=== PATIENT | male | born 1950 | race Caucasian/White ===

== ENCOUNTER 2016-10-26 09:57 | Inpatient (IN) ==
[2016-10-26] MEDS ORDERED: ZOSYN 3.375 GM/NS 3.375 GM/50 ML IVPB IV ONE (11:00)
[2016-10-26] MEDS ORDERED: NS 1,000 ML IV ONE ×2 (11:01→12:45)
--- NOTE | 2016-10-26 11:25 | PROVIDER DOCUMENTATION ---
This chart was entered by Suha Braga Scribe, acting as scribe for Keyanna Caldera CRNP. HPI-Rash/Wound/ReCheck <Tristen Garcia - Last Filed: 10/29/16 10:26> - General Source: patient - History of Present Illness-Dermatology Location: reports: lower extremity (R lower leg) Quality: reports: painful Severity: reports: mild Onset/Duration: reports: 24 hours ago Timing: reports: still present Context/Associated Symptoms: reports: other (erythema) Exposure: reports: unknown cause Locality of Occurance: Home Similar Symptoms Previously?: Yes Recently seen or treated by another doctor?: Yes - Recheck Treated days ago.: 1 Antibiotics given: prescription Symptoms since procedure:: reports: pain, redness <Keyanna Caldera - Last Filed: 10/29/16 21:04> - General Chief Complaint: Return/Recheck Stated Complaint: RETURN/RECHECK Time Seen by Provider: 10/26/16 10:14 Allergies/Adverse Reactions: Allergies Allergy/AdvReac Type Severity Reaction Status Date / Time cefepime Allergy Severe ITCHING Verified 10/29/16 10:13 Home Medications: Home Medication List Medication Instructions Recorded Confirmed Last Taken Type Clindamycin [Cleocin] 300 mg PO TID #30 capsule 10/25/16 10/26/16 10/26/16 09: 00 Rx Hydrocodone/APAP 5 mg/325 mg 1 - 2 tab PO Q6H PRN PRN #20 tablet 10/25/1610/26/16 03:00 Rx [Halliday-5] Lisinopril/Hydrochlorothiazide 1 each PO DAILY 10/26/16 10/26/16 10/25/16 08:00 History [Lisinopril-Hctz 20-25 mg Tab] - History of Present Illness-Dermatology Nature of Presenting Problem: Pt is 66 y/o M presents to the ED with cellulitis to R lower leg. Pt states was seen yesterday in ED and was diagnosed with cellulitis. Pt states receiving IV fluids and IV antibiotics. Pt states he thinks the redness has worsened. Pt states swollen lymph nodes to R groin. Pt states ant bites to R ankle 3 weeks ago. Pt denies N and V. Pt denies F. (Suha Braga) Pt is 66 y/o M presents to the ED with cellulitis to R lower leg. Pt states was seen yesterday in ED and was diagnosed with cellulitis. Pt states receiving IV fluids and IV antibiotics. Pt states he thinks the redness has worsened. Pt states swollen lymph nodes to R groin. Pt states ant bites to R ankle 3 weeks ago. Pt denies N and V. Pt denies F. (Keyanna Caldera) Review of Systems - Adult - REVIEW OF SYSTEMS - ADULT Constitutional: reports: no symptoms reported Eyes: reports: no symptoms reported Ears, Nose, Mouth & Throat: reports: no symptoms reported Cardiovascular: reports: no symptoms reported Respiratory: reports: no symptoms reported Gastrointestinal: reports: no symptoms reported Genitourinary: reports: no symptoms reported Musculoskeletal: reports: other (R lower leg pain). denies: back pain, neck pain Integumentary: reports: other (erythema R lower leg). denies: hives, itching, rash Neurological: reports: no symptoms reported Psychiatric: reports: no symptoms reported Endocrine: reports: no symptoms reported Hematologic/Lymphatic: reports: no symptoms reported Allergic/Immunologic: reports: no symptoms reported All Other Systems: Reviewed and Negative <Keyanna Caldera - Last Filed: 10/29/16 21:04> Past History - Adult - PAST MEDICAL HISTORY-ADULT Review of Records: reports: Old Records Reviewed, Nursing Assessment Review, Medications Reviewed, Social history reviewed & non-contributory. Major Childhood Illnesses: reports: denies history Cardiovascular: reports: HTN, hyperlipidemia Respiratory: reports: denies history Gastrointestinal: reports: denies history Obstetrical/Gynecological: reports: denies history Genitourinary: reports: denies history Musculoskeletal: reports: denies history Neurological: reports: denies history Endocrine/Immune: reports: denies history Other Conditions: reports: denies history - IMMUNIZATION STATUS Childhood Immunizations: See Nurse Assessment Flu Vaccine: See Nurse Assessment - FAMILY HISTORY Family History: reviewed, not pertinent - SOCIAL HISTORY Smoking: denies Substance Use: denies Living Situation: family <Keyanna Caldera - Last Filed: 10/29/16 21:04> Physical Exam-General - PHYSICAL EXAM-ADULT Initial Vital Signs Reviewed: Yes - CONSTITUTIONAL General Appearance: appears well, alert, no apparent distress - EYES Eyes: PERRL/EOMI - HEAD, EARS, NOSE, MOUTH & THROAT HENMT: moist mucous membranes - RESPIRATORY Respiratory: chest non-tender, lungs clear, normal breath sounds, no pleuratic chest pain, no respiratory distress, no accessory muscle use - CARDIOVASCULAR Cardiovascular: normal peripheral pulses, regular rate, rhythm - GASTROINTESTINAL (ABDOMEN) Abdominal Exam: normal bowel sounds, non tender, soft - LYMPHATIC Lymphatic: inguinal node tender (RT), enlargement - MUSCULOSKELETAL Extremity: normal range of motion, normal gait, erythema (RLE AND RT GROIN), swelling (RLE) Peripheral Pulses: dorsalis-pedis (R): 3+, dorsalis-pedis (L): 3+ - SKIN Integumentary: normal turgor, warm/dry, erythema, swelling, tenderness - NEUROLOGIC Neurologic: grossly normal, no motor/sensory deficits - PSYCHIATRIC Psych/Mental Status: normal mood/affect, oriented x 3 <Keyanna Caldera - Last Filed: 10/29/16 21:04> Progress - PLAN OF CARE/RESULTS Result Diagrams: 10/29/16 08:37 10/29/16 08:37 <Tristen Garcia - Last Filed: 10/29/16 10:26> - PLAN OF CARE/RESULTS Result Diagrams: 10/29/16 08:37 10/29/16 08:37 - REASSESSMENT Reassessment #1 Time Reassessed: 11:00 (DISCUSSED PT WITH DR. GARCIA WHO EVALUATED AND ASSISTED WITH PLAN OF CARE TO ADMIT.) Status: other - CONSULTS/PCP/HOSPITALIST Notification #1 *Consult/PCP/Hospitalist*: DR. GUTIERRES Time Discussed: 12:32 (DISCUSSED ADMISSION FOR CELLULITIS, IV ABX.) Consult Disposition: Admit <Keyanna Caldera - Last Filed: 10/29/16 21:04> - PLAN OF CARE/RESULTS Progress/Plan/Lab Results: Orders Category Date Time Status Admit - [facility] Routine AdmDCTranf 10/26/16 12:45 Ordered Activity - Up Ad Alejandra ORDERED Care 10/26/16 12:45 Completed Call Admitting on Arrival AT ADMISSION Care 10/26/16 12:46 Completed Saline Loc NOW Care 10/26/16 10:59 Completed Vital Signs Order Q 8-HR ASSESS Care 10/26/16 12:45 Active Regular Diet Diet 10/26/16 12:46 Completed CBC WITH ELECTRONIC DIFF [HEME] Stat Lab 10/26/16 11:30 Completed COMPREHENSIVE METABOLIC PANEL [CHEM] Stat Lab 10/26/16 11:30 Completed 0.9% Sodium Chloride Inj [Ns] 1,000 ml Med 10/26/16 12:45 Discontinued IV 150 mls/hr 0.9% Sodium Chloride Inj [Ns] 1,000 ml Med 10/26/16 11:01 Discontinued IV 999 mls/hr Piperacil/Tazobact 3.375 gm/Ns [Zosyn 3.375 gm/Ns] Med 10/26/16 11:00 Discontinued 3.375 gm in 50 ml IV NOW Transfer/Admit Order [TRANSFER] Routine Transfer 10/26/16 12:47 Completed Departure - Departure Date of Disposition Decision: 10/26/16 Time of Disposition Decision: 12:30 Certified Medical Emergency: Urgent - Critical Care Note This patient required my direct & personal management of CC.: No <Tristen Garcia - Last Filed: 10/29/16 10:26> - Departure Date of Disposition Decision: 10/26/16 Time of Disposition Decision: 12:31 Certified Medical Emergency: Emergent - Critical Care Note This patient required my direct & personal management of CC.: No <Keyanna Caldera - Last Filed: 10/29/16 21:04> - Departure DIAGNOSIS: Cellulitis Qualifiers: Site of cellulitis: extremity Site of cellulitis of extremity: lower extremity Laterality: right Qualified Code(s): L03.115 - Cellulitis of right lower limb Disposition: ADMITTED INPATIENT 09 Condition: Good Attestation - Physician/ RENE Attestation Patient care was provided by Advanced Practice Provider:: Yes Advanced Practice Provider:: Keyanna Caldera Advanced Practice Provider documentation review:: The Mid-level provider documentation, treatment plan and medical decision making was reviewed by the physician who agrees with all treatment and medical decision making by the MLP. <Keyanna Caldera - Last Filed: 10/29/16 21:04> This chart was documented by the indicated scribe, (Suha Braga Scribe) and accurately reflects the services I performed and decisions made by , Keyanna Caldera CRNP, as attested by the provider's signature.
[2016-10-26 11:55] LABS: BASO% 0.1 % (0.0-0.8); HEMATOCRIT 36.3 % (42.0-52.0); HEMOGLOBIN 12.1 g/dL (14.0-18.0); IMM GRAN# 0.02 X1000 (0.0-0.04); IMM GRAN% 0.2 % (0.0-0.5); LYMPH% 7.9 % (20.5-51.1); MCH 31.8 PG (27-31); MCHC 33.3 g/dL (33-37); MCV 95.5 FL (81-99); MONO# 0.55 X1000 (0.11-0.59); MONO% 6.2 % (1.7-9.3); MPV 10.2 FL (7.4-10.4); NEUT% 85.6 % (42.2-75.2); PLT 139 X1000 (130-400)
[2016-10-26 12:24] LABS: ALBUMIN 3.4 g/dL (3.5-5.0); CALCIUM 8.5 mg/dL (8.8-10.2); POTASSIUM 3.4 mmol/L (3.5-5.1); TOTAL BILIRUBIN 0.6 mg/dL (0.20-1.00); TOTAL PROTEIN 6.7 g/dL (6.3-8.3)
[2016-10-26 12:26] LABS: MANUAL DIFF NEEDED? NO
[2016-10-26] MEDS ORDERED: ZOFRAN IV PRN (16:49)
[2016-10-26] MEDS ORDERED: PERCOCET-5 PO PRN (16:49)
[2016-10-26 17:20] LABS: HEMOGLOBIN A1C 5.7 % (4.8-6.0)
[2016-10-26] MEDS: NS 1,000 ML IV SCH (17:40)
[2016-10-26] MEDS ORDERED: VANCOMYCIN IV PER PHARMACY MISC SCH (19:15)
[2016-10-26] MEDS: ZOSYN 3.375 GM/NS 3.375 GM/50 ML IVPB IV SCH (19:54)
[2016-10-26] MEDS: VANCOMYCIN 2,000 MG in NS 500 ML IV SCH (20:56)
[2016-10-26] MEDS ORDERED: PERCOCET-10 PO PRN (21:34)
[2016-10-26] MEDS ORDERED: DILAUDID IV PRN (21:34)
[2016-10-27] MEDS: NS 1,000 ML IV SCH ×3 (02:00→21:05)
[2016-10-27] MEDS: ZOSYN 3.375 GM/NS 3.375 GM/50 ML IVPB IV SCH ×4 (02:00→21:02)
[2016-10-27] MEDS ORDERED: TYLENOL PO PRN (02:21)
[2016-10-27] MEDS: PRILOSEC PO SCH (06:29)
[2016-10-27 07:08] LABS: CALCIUM 7.6 mg/dL (8.8-10.2); POTASSIUM 3.4 mmol/L (3.5-5.1)
[2016-10-27 07:17] LABS: HEMOGLOBIN 10.6 g/dL (14.0-18.0); MCH 31.8 PG (27-31); MCHC 33.1 g/dL (33-37); MCV 96.1 FL (81-99); MPV 10.6 FL (7.4-10.4); RBC 3.33 XMIL (4.7-6.1)
[2016-10-27] MEDS ORDERED: DILAUDID IV PRN (08:13)
[2016-10-27] MEDS: PRINIVIL PO SCH (09:10)
[2016-10-27] MEDS: HYDROCHLOROTHIAZIDE PO SCH (09:10)
[2016-10-27] MEDS: LOVENOX SUBQ SCH (09:11)
--- NOTE | 2016-10-27 12:21 | PROGRESS NOTE ---
DATE: 10/27/2016 CHIEF COMPLAINT: Pain right lower extremity. SUBJECTIVE: Patient notes he is still having pain in his right lower extremity. It is quite difficult to understand if the IV Dilaudid or p.o. Percocet actually was affected because patient appears to be uninterested in answering those questions. He certainly does appear to be in pain but it does appear somewhat over exaggerated. Upon entering the room his pain appears to increase. OBJECTIVE: Vital signs: Temperature 99, T-max 100.3 degrees, pulse 80, respiratory rate 16, BP 118/46, saturation 95% on room air. General: Patient is awake, alert, obese male who is currently in no respiratory distress. He is lying in bed flat. HEENT: Normocephalic, atraumatic. CLARENCE. Neck: Supple. CV: Regular rate. Chest: Clear. Abdomen: Soft. Extremities: Moves all extremities, although has pain with movement of the any type of the right lower extremity. Neurologic: No focal changes. Skin: His right lower extremity has deep erythema and increased warmth from 2 fingerbreadths above his right ankle to about 3 cm below his right knee. His right foot actually appears less erythematous and less warm than it did last night, although upon the last night's exam he was sitting up with his feet hanging over the side of the bed, which certainly could have increased the erythema of his foot. ASSESSMENT: 1. Cellulitis. 2. Fever. 3. Hypertension. PLAN: We will consult infectious disease for assistance with antibiotics. We will continue vancomycin and Zosyn for now. We will increase his Dilaudid to 2 mg q.2. Continue Percocet. Continue to follow. cc: Minh Camarena MD
[2016-10-27] MEDS: VANCOMYCIN 2,000 MG in NS 500 ML IV SCH (20:50)
[2016-10-28] MEDS: ZOSYN 3.375 GM/NS 3.375 GM/50 ML IVPB IV SCH ×2 (03:00→06:18)
[2016-10-28 05:51] LABS: HEMOGLOBIN 10.4 g/dL (14.0-18.0); MCH 31.1 PG (27-31); MCHC 32.5 g/dL (33-37); MCV 95.8 FL (81-99); MPV 10.2 FL (7.4-10.4); RBC 3.34 XMIL (4.7-6.1)
[2016-10-28 06:08] LABS: ALBUMIN 2.8 g/dL (3.5-5.0); MAGNESIUM 1.8 mg/dL (1.5-2.7); POTASSIUM 3.3 mmol/L (3.5-5.1); TOTAL BILIRUBIN 0.7 mg/dL (0.20-1.00)
[2016-10-28] MEDS: PRILOSEC PO SCH (06:17)
[2016-10-28] MEDS: MAXIPIME 2 GM/NS 2 GM/100 ML IVPB IV SCH ×2 (08:28→19:48)
[2016-10-28] MEDS: ZYVOX PO SCH ×2 (08:28→19:48)
[2016-10-28] MEDS: HYDROCHLOROTHIAZIDE PO SCH (08:28)
[2016-10-28] MEDS: PRINIVIL PO SCH (08:28)
[2016-10-28] MEDS: LOVENOX SUBQ SCH (08:28)
--- NOTE | 2016-10-28 10:58 | HISTORY AND PHYSICAL ---
CHIEF COMPLAINT: Cellulitis of the right lower extremity. HISTORY OF PRESENT ILLNESS: This is a 66-year-old male who presented to the emergency room initially on 10/25/2016 for evaluation of right lower extremity redness, warmth, and pain. A venous Doppler was performed which revealed no DVT. He was given clindamycin and instructed to follow up with his primary care physician. As there was increasing redness, warmth, and swelling, he opted to return to the emergency room for further evaluation. He was noted to have swelling, redness, and warmth from his ankle up to just above his knee with a right groin enlarged lymph node and redness extending from his groin about 6 inches down his thigh. He is unaware of any injury, scratch, or open areas. Blood cultures were drawn. He was given Zosyn in the emergency room. He is being admitted for further evaluation and treatment. PAST MEDICAL HISTORY: Hypertension, hyperlipidemia, and recurrent infections to his feet as a child. PAST SURGICAL HISTORY: Denies. SOCIAL HISTORY: He denies alcohol, tobacco, or illicit drug use. ALLERGIES: No known drug allergies. HOME MEDICATIONS: Lisinopril/hydrochlorothiazide 20/25 one daily. REVIEW OF SYSTEMS: A 14 point review of systems is discussed with patient with pertinent positives stated in the HPI. He denied chest pain, palpitations, dizziness, syncope, any shortness of breath, PND, orthopnea, nausea, vomiting, diarrhea, constipation, black or bloody vomitus, black or bloody stools, any hematuria, dysuria, frequency, urgency. PHYSICAL EXAMINATION: GENERAL: This is a 66-year-old male who is sitting up in the bed, in no distress. VITAL SIGNS: Blood pressure is 132/70, with a heart rate of 83, respirations are 18, temperature is 98.3 degrees oral, with room air saturations of 98%. HEENT: Head is normocephalic, atraumatic. Pupils equal, round, react to light. EOMs are intact. Sclerae are anicteric. Mucous membranes are moist. NECK: Supple with trachea midline. CARDIOVASCULAR: Regular rate and rhythm. S1 and S2 are appreciated. PULMONARY: Breath sounds are clear with no increased work of breathing noted. GASTROINTESTINAL: Abdomen is soft, nontender, nondistended. Bowel sounds in all 4 quadrants. BACK: No CVAT. No spine tenderness. MUSCULOSKELETAL: Good range of motion of the joints. NEUROLOGIC: He is alert and oriented x3. Cranial nerves 2-12 grossly intact. EXTREMITIES: No clubbing, cyanosis, or edema to upper extremities or left lower extremity. Right lower extremity has redness, edema, and warmth from just above the knee down to the ankle. He does have good peripheral pulses x4. DIAGNOSTICS: WBC is 8.8, with hemoglobin 12.1, hematocrit 36.3, and platelets of 139,000. Sodium 134, potassium 3.4, BUN 22, creatinine 1.7, with a glucose of 130. ASSESSMENT AND PLAN: 1. Cellulitis, right lower extremity. 2. Fever. 3. Hypertension. 4. Acute kidney injury. PLAN: Patient has been admitted to the medical-surgical floor with IV fluids. We will continue Zosyn. We will start vancomycin to be dosed per pharmacy. We will continue his home medications, giving Dilaudid for pain control. The patient denies a known prior history of renal disease. We will hold any renal toxic medications and hydrate and trend labs. We will have pharmacy dose antibiotics. We will consult Dr. Ac Young, infectious disease. Further treatments pending hospital course. Dictated by FILIBERTO Allen for Minh Camarena MD cc: FILIBERTO Allen MD
--- NOTE | 2016-10-28 14:25 | PROGRESS NOTE ---
DATE: 10/28/2016 SUBJECTIVE: The patient is still having some pain in his right lower extremity, although he has required no pain medications since 6 o'clock last night. The patient is watching TV at the time of my exam, and he does not seem interested in answering questions or engaging in conversation. OBJECTIVE: Vital Signs: Blood pressure is 135/46 with a heart rate of 78, respirations are 20, temperature is 98.3 degrees oral with room air saturations of 93% to 99%. Cardiovascular: Regular rate and rhythm. S1, S2 appreciated. Pulmonary: Breath sounds are clear with no increased work of breathing noted. Gastrointestinal: Abdomen is soft, nontender, nondistended with bowel sounds in all 4 quadrants. Extremities: No clubbing, cyanosis, and edema to upper extremities or left lower. Right lower extremity still has erythema and increased warmth from 2 fingerbreadths above his right ankle to about 3 cm below his right knee, although this has decreased somewhat. The edema to his foot is less. Patient has been instructed that the gatch has been elevated on the foot of his bed, and he needs to use this to keep his feet elevated to help with edema, although he is actually sitting with his foot hanging over the side of the bed when staff enter the room. LABS: WBC is 5.4 with a hemoglobin of 10.4, hematocrit 32 and platelets of 139. Sodium is 138, potassium 3.3, BUN 10, creatinine 1.5 with a glucose of 117. ASSESSMENT: 1. Cellulitis, right lower extremity. 2. Fever. 3. Hypertension. 4. Deep vein thrombosis prophylaxis, gastrointestinal prophylaxis. PLAN: We will continue with antibiotics per Dr. Young' recommendations; these were changed this mornin. Zyvox 600 mg q. 12 hours. 2. Cefepime 2 g IV q. 12 hours with day 1 being 10/28/2016. Continue pain control with oxycodone. Dictated by FILIBERTO Allen for Minh Camarena MD cc: FILIBERTO Allen MD
[2016-10-29] MEDS: PRILOSEC PO SCH (05:59)
[2016-10-29] MEDS ORDERED: KLOR-CON PO ONE (07:45)
[2016-10-29] MEDS: PRINIVIL PO SCH (08:29)
[2016-10-29] MEDS: ZYVOX PO SCH ×2 (08:29→20:58)
[2016-10-29] MEDS: HYDROCHLOROTHIAZIDE PO SCH (08:30)
[2016-10-29] MEDS: MAXIPIME 2 GM/NS 2 GM/100 ML IVPB IV SCH (08:30)
[2016-10-29] MEDS: LASIX IV SCH (08:31)
[2016-10-29] MEDS: LOVENOX SUBQ SCH (08:31)
[2016-10-29 09:07] LABS: ALBUMIN 3.2 g/dL (3.5-5.0); POTASSIUM 3.1 mmol/L (3.5-5.1); TOTAL BILIRUBIN 0.9 mg/dL (0.20-1.00); TOTAL PROTEIN 6.8 g/dL (6.3-8.3)
[2016-10-29 09:33] LABS: HEMATOCRIT 33.6 % (42.0-52.0); HEMOGLOBIN 11.4 g/dL (14.0-18.0); MCH 31.9 PG (27-31); MCHC 33.9 g/dL (33-37); MCV 94.1 FL (81-99); RBC 3.57 XMIL (4.7-6.1)
--- NOTE | 2016-10-29 09:51 | PROGRESS NOTE ---
DATE: 10/29/2016 SUBJECTIVE: The patient denies any new complaints. He states that his leg still hurts tremendously when he moves it. He has been using a bedside urinal instead of getting up secondary to the pain, although he has not been taking pain medication. PHYSICAL EXAMINATION: Temperature 99 with a T-max of 100.5 degrees, pulse 72, respiratory rate 18, blood pressure 127/64, saturation 96% on room air.General: The patient is awake, alert. He is lying flat in the bed. He is in no respiratory distress. HEENT: Normocephalic, atraumatic. PERRLA. Neck: Supple. Cardiovascular: Regular rate. Chest: Relatively clear, nonlabored. Abdomen: Soft, obese. Positive bowel sounds. Extremities: Moves all extremities. Skin: He is noted to have possibly a little bit less erythema than yesterday's exam. Certainly, he seems a little less swollen. He is actually developing wrinkles where he his leg has been in contact with the bed. This is different than yesterday's exam. He certainly has no worsening of his erythema, edema, or swelling. ASSESSMENT: 1. Fever. His temperature maximum currently is 100.5. 2. Cellulitis. 3. Hypertension. PLAN: The patient currently is on vancomycin and Zosyn. We will contact Dr. Young, infectious disease, to see if he feels as though it is warranted to change his antibiotics at this time. Unfortunately, blood culture somehow was canceled upon transfer, and this was not done. We will attempt to repeat his blood culture today, as well as repeat his labs. We will add IV Lasix x1 dose and see if this helps improve. cc: Minh Camarena MD
[2016-10-29] MEDS ORDERED: BENADRYL IV ONE (10:05)
[2016-10-29] MEDS ORDERED: PEPCID IV ONE (10:05)
[2016-10-29] MEDS ORDERED: SODIUM CHLORIDE 0.9% INJ ONE (10:05)
[2016-10-29] MEDS: HYDROXYZINE PO SCH ×2 (10:43→17:49)
[2016-10-29] MEDS: ZYRTEC PO SCH (10:43)
[2016-10-29] MEDS: BENADRYL PO SCH ×3 (16:17→21:01)
[2016-10-29] MEDS: SOLU-MEDROL IV SCH (18:49)
[2016-10-29] MEDS: PEPCID PO SCH (20:58)
[2016-10-30] MEDS: HYDROXYZINE PO SCH ×2 (02:00→10:07)
[2016-10-30] MEDS: SOLU-MEDROL IV SCH ×3 (02:00→17:59)
[2016-10-30] MEDS: PRILOSEC PO SCH (06:00)
[2016-10-30] MEDS: BENADRYL PO SCH (06:00)
[2016-10-30 06:36] LABS: HEMATOCRIT 36.8 % (42.0-52.0); HEMOGLOBIN 12.6 g/dL (14.0-18.0); MCH 31.9 PG (27-31); MCHC 34.2 g/dL (33-37); MCV 93.2 FL (81-99); MPV 10.1 FL (7.4-10.4); RBC 3.95 XMIL (4.7-6.1)
[2016-10-30 06:49] LABS: ALBUMIN 3.3 g/dL (3.5-5.0); CALCIUM 9.4 mg/dL (8.8-10.2); TOTAL BILIRUBIN 0.4 mg/dL (0.20-1.00); TOTAL PROTEIN 7.4 g/dL (6.3-8.3)
[2016-10-30] MEDS: LASIX IV SCH (10:05)
[2016-10-30] MEDS: AZACTAM 2 GM in NS 100 ML IV SCH ×2 (10:05→17:59)
[2016-10-30] MEDS: LOVENOX SUBQ SCH (10:05)
[2016-10-30] MEDS: PEPCID PO SCH ×3 (10:07→20:18)
[2016-10-30] MEDS: ZYVOX PO SCH ×2 (10:07→19:52)
[2016-10-30] MEDS: HYDROCHLOROTHIAZIDE PO SCH (10:07)
[2016-10-30] MEDS: PRINIVIL PO SCH (10:07)
[2016-10-30] MEDS: ZYRTEC PO SCH (10:08)
--- NOTE | 2016-10-30 14:18 | PROGRESS NOTE ---
DATE: 10/30/2016 SUBJECTIVE: The patient states that he has no new complaints. He still has pain when moving or ambulating although he has taken no pain medication, he states he can deal with the pain physical OBJECTIVE: Vital Signs: Blood pressure is 128/69 with a heart rate of 64, respirations are 18, temperature is 97.5 degrees oral with room air saturations of 95-98%. Cardiovascular: Regular rate and rhythm. S1, S2 appreciated. Pulmonary: Breath sounds are clear with no increased work of breathing noted. Chest does rise and fall symmetrically with respiration. Gastrointestinal: Abdomen is soft, nontender, nondistended with bowel sounds in all 4 quadrants. Extremities: No clubbing, cyanosis, or edema to the upper extremities and left lower extremity. Right lower extremity is edematous from his toes up to about midthigh. He does have slightly less erythema than yesterday and swelling has improved. Heels bilateral have no breakdown. LABS: WBC is 5.09 with hemoglobin of 12.6, hematocrit 36.8, platelets of 224,000. Sodium is 138, potassium 4, BUN 16, creatinine 1.8 with a glucose of 212. Blood cultures are pending. ASSESSMENT: 1. Fever. Temperature max is 99.2 degrees the last 24 hours. 2. Cellulitis. This is starting to improve just a little. Will continue with the current regimen. We appreciate Dr. Young' input. 3. Hypertension aware. 4. Allergic reaction, it seems this is from cefepime as he did start itching and having a rash shortly after this dose was given. It has been discontinued. We will continue with hydroxyzine, Benadryl and Zyrtec, Pepcid and start Azactam this morning. 5. Will contact wound care to assess the patient and assist to evaluate to ensure the patient does not get any heel breakdown. Dictated by FILIBERTO Allen for Minh Camarena MD cc: FILIBERTO Allen MD
--- NOTE | 2016-10-30 20:01 | CONSULTATION ---
DATE OF CONSULTATION: 10/30/2016 CONCLUSION: This 66-year-old male is admitted the hospital with cellulitis of the right leg. He is predisposed to developing this by 1st of all having some edema in the leg and at least the more than the left leg according to the patient. In addition, he has scaling on his feet and also between the toes. The scaling between the toes I think is due to tinea pedis, but I am not certain as to the cause of the scaling on the rest of his feet. In any event, these areas could serve as a portal of entry for the infection to occur again in his leg. RECOMMENDATIONS: I agree with treating with Zyvox and cefepime. I would suggest continuing it over the weekend and then on Wednesday the if you agree I think he could be discharged home on Keflex 500 mg p.o. every 8 hours for an additional 2 weeks and also the patient can apple picker [id number] generic form of Lotrimin cream which is clotrimazole and put it between all of the toes of both feet every 12 hours and in a few days he can probably just do it once a day, in the morning. I will see the patient in the office after 2 weeks but if he is all cleared up then he can cancel the appointment. Also I urged the patient to elevate both legs as much as possible. DISCUSSION: The patient approximately a week ago developed erythema and more swelling in his right leg. He has been admitted to the hospital and has been receiving IV antibiotics. His CBC shows a white count of 5,090, hemoglobin 12.6, and platelet count of 224,000. Creatinine is 1.8. GFR is 38. Liver function studies are normal. The patient's leg has improved quite a bit. It is not as swollen. It still is fairly erythematous but this may be fading. PAST MEDICAL HISTORY/REVIEW OF SYSTEMS: Eyes and ears: He denies difficulty hearing or seeing. Neck: No stiffness. Respiratory: No cough or shortness of breath. GI: No nausea, vomiting, or diarrhea. Cardiac: No chest pain or palpitations. Genitourinary: No dysuria or flank pain. Integument: No rashes. Neurologic: No seizures or motor or sensory loss. Hematologic: No anemia or bleeding tendency. Endocrine: No diabetes or thyroid disease. PREVIOUS HOSPITALIZATIONS AND OPERATIONS: He has had pneumonia 3 times as a child. He once had a toenail partially removed. MEDICAL DISEASES: Positive for hypertension and hyperlipidemia. INFECTIOUS DISEASE HISTORY: Positive for pneumonia, scabies, shingles, and rosacea. FAMILY HISTORY: Positive for Crohn disease and cancer. SOCIAL HISTORY: The patient lives in [place]. He stopped smoking cigarettes 24 years ago. He rarely drinks alcoholic beverages. He does not abuse drugs. He did develop a rash while he was on cefepime. He is . He has dogs for pets. HOME MEDICATIONS: Consist of the following. Lisinopril/hydrochlorothiazide, hydrocodone, and clindamycin. PHYSICAL EXAMINATION: Vital signs: Temperature is 97.6 degrees, pulse 83, respirations 18, blood pressure 140/71. General: The patient is obese but otherwise healthy- appearing. He is in no acute distress. Head, eyes, ears, nose, and throat: He can hear my spoken words and see near objects. There is no coating to his tongue. Neck: No meningismus. Thorax: No increased AP diameter. Lungs: Clear to auscultation. Cardiovascular: Heart rate is regular. Peripheral pulses are palpable. Abdomen: Soft and nontender. Extremities: The patient' s right leg is less swollen than it was earlier in the week. It still is erythematous but according to the patient both the swelling and the erythema is better. Neurologic: Patient is alert. He can move his extremities. There is no tremor. His sensation is intact to touch. His memory as regarding his medical history was intact. Thank you for the consult. cc: MD Minh Rust MD MTDD
[2016-10-30] MEDS: LOTRIMIN 1% CREAM TOP SCH (20:17)
[2016-10-31] MEDS: AZACTAM 2 GM in NS 100 ML IV SCH ×2 (01:47→09:54)
[2016-10-31] MEDS: SOLU-MEDROL IV SCH ×2 (01:47→09:56)
[2016-10-31] MEDS: PRILOSEC PO SCH (06:10)
[2016-10-31] MEDS: HYDROCHLOROTHIAZIDE PO SCH (09:55)
[2016-10-31] MEDS: PEPCID PO SCH (09:55)
[2016-10-31] MEDS: PRINIVIL PO SCH (09:55)
[2016-10-31] MEDS: ZYVOX PO SCH (09:55)
[2016-10-31] MEDS: ZYRTEC PO SCH (09:56)
[2016-10-31] MEDS: LOTRIMIN 1% CREAM TOP SCH (09:57)
[2016-10-31] MEDS: LASIX IV SCH (09:57)
[2016-10-31] MEDS: LOVENOX SUBQ SCH (09:59)
[2016-10-31] MEDS ORDERED: KEFLEX PO SCH (13:00)
[2016-10-31 14:35] VITALS: BP 141/72
--- NOTE | 2016-11-01 06:56 | DISCHARGE SUMMARY ---
ADMISSION DATE: 10/26/2016 DISCHARGE DATE: 10/31/2016 DIAGNOSES: 1. Fever, resolved. 2. Cellulitis, right lower extremity, resolving. 3. Hypertension. 4. Allergic reaction, possibly from cefepime, resolved. CONSULTS: Dr. Ac Young, infectious disease. MICROBIOLOGY: Blood cultures are negative x2. HOSPITAL COURSE: Mr. Langley presented with cellulitis to his right lower extremity that did not respond to outpatient treatment for which he was treated with vancomycin and Zosyn. Dr. Young was consulted shortly after admission and antibiotics were changed to Zyvox and Mefoxin. The patient started having itching and a rash shortly after cefepime had been infused, before this was discontinued, and he was changed to aztreonam. Thankfully, he has improved. His leg is almost back to normal. Of note, he did have an extremity venous study of the right lower extremity performed on October 25 prior to admission which revealed negative for venous thrombosis. PHYSICAL EXAMINATION: Cardiovascular: Regular rate and rhythm. S1 and S2 are appreciated. Pulmonary: Breath sounds are clear. No increased work of breathing noted. Gastrointestinal: Abdomen is soft, nontender, nondistended. Bowel sounds in all 4 quadrants. DISCHARGE MEDICATIONS: Maxzide 20/25 one daily, [place] 5 one to two q.6 hours p.r.n., Medrol Dosepak as directed, Keflex 500 mg p.o. q.8 hours x7 days, Pepcid 40 mg b.i.d. FOLLOWUP: He is to follow up with Dr. Ac Young in 2 weeks, sooner if needed. DISPOSITION: He is being discharged home in stable condition with family members. TIME SPENT: This is a greater than 30 minute discharge. Dictated by FILIBERTO Allen for Minh Camarena MD cc: FILIBERTO Allen MD
== END 2016-10-31 15:50 | disposition home or self-care (01) ==
LOC: P.MEDSURG 09:57 → P.ED 09:57 → OBSVTOIN 13:52
PROVIDERS: ADMIT Family Medicine; ATTEND Family Medicine

== ENCOUNTER 2018-04-18 05:05 | Inpatient (IN) ==
[2018-04-12 16:34] LABS: HEMOGLOBIN 13.3 g/dL (14.0-18.0); MCH 31.8 PG (27-31); MCHC 32.4 g/dL (33-37); MCV 98.1 FL (81-99); MPV 9.8 FL (7.4-10.4); RBC 4.18 XMIL (4.7-6.1); WBC 5.65 X1000 (4.8-10.8)
[2018-04-12 16:59] LABS: CALCIUM 9.4 mg/dL (8.8-10.2); CREATININE 1.6 mg/dL (0.7-1.2); POTASSIUM 4.2 mmol/L (3.5-5.1)
--- NOTE | 2018-04-13 07:23 | EKG Report ---
Test Performed on : 04/12/2018 3:51:10 PM Test Reason : PAT Blood Pressure : / mmHG Vent. Rate : 068 BPM Atrial Rate : 068 BPM P-R Int : 198 ms QRS Dur : 092 ms QT Int : 422 ms P-R-T Axes : 046 023 010 degrees QTc Int : 448 ms Normal sinus rhythm. Normal ECG No previous ECGs available Confirmed by Karoline VASQUEZ, Yunior Martinez ([id number]) on 04/14/2018 6:57:17 PM
[2018-04-18] MEDS ORDERED: PEPCID ONE (05:44)
[2018-04-18] MEDS ORDERED: LR 1,000 ML ONE ×3 (05:44→14:49)
[2018-04-18] MEDS ORDERED: REGLAN ONE (05:44)
[2018-04-18] MEDS ORDERED: KEFZOL 2 GM/D5W 2 GM/50 ML IVPB ONE (05:44)
[2018-04-18] MEDS ORDERED: DIPRIVAN 1% ONE (06:17)
[2018-04-18] MEDS ORDERED: FENTANYL ONE (06:17)
[2018-04-18] MEDS ORDERED: SODIUM CHLORIDE 0.9% 10 ML ONE (06:19)
[2018-04-18] MEDS ORDERED: QUELICIN (DOSE) ONE (06:19)
[2018-04-18] MEDS ORDERED: NORCURON ONE (06:19)
[2018-04-18] MEDS ORDERED: XYLOCAINE-MPF 2% ONE (06:19)
[2018-04-18] MEDS ORDERED: SENSORCAINE-MPF 0.5%/EPI 1:200,000 ONE (06:34)
[2018-04-18] MEDS ORDERED: B & O 16A SUPP ONE (06:34)
[2018-04-18] MEDS ORDERED: DECADRON ONE (07:47)
[2018-04-18] MEDS ORDERED: ZOFRAN ONE (07:51)
[2018-04-18] MEDS ORDERED: ROBINUL ONE (07:51)
[2018-04-18] MEDS ORDERED: NEOSTIGMINE ONE (07:52)
[2018-04-18] MEDS ORDERED: OFIRMEV 1000 MG/ISOTONIC SOLN 1,000 MG/100 ML BOTTLE ONE (07:53)
[2018-04-18 08:07] LABS: URINE SOURCE CATH
[2018-04-18 08:17] LABS: BILIRUBIN URINE NEGATIVE (NEGATIVE); BLOOD URINE NEGATIVE (NEGATIVE); COLOR YELLOW; GLUCOSE URINE NEGATIVE (NEGATIVE); KETONE URINE NEGATIVE (NEGATIVE); LEUKOCYTES URINE NEGATIVE (NEGATIVE); NITRITE URINE NEGATIVE (NEGATIVE); PROTEIN URINE NEGATIVE (NEGATIVE); SP GRAVITY URINE 1.014; TURBIDITY URINE CLEAR (CLEAR); UROBILINOGEN URINE NORMAL (NORMAL)
[2018-04-18 08:18] LABS: UR EPITHELIAL CELLS <10 /HPF (<10); URINE BACTERIA NEGATIVE /HPF; URINE RBC <10 /HPF (<10); URINE WBC <10 /HPF (<10)
[2018-04-18 14:09] LABS: HEMATOCRIT 31.5 % (42.0-52.0); HEMOGLOBIN 10.1 g/dL (14.0-18.0)
[2018-04-18] MEDS: DILAUDID ONE ×4 (14:26→14:40)
[2018-04-18] MEDS ORDERED: LR 500 ML ONE (14:30)
[2018-04-18] MEDS ORDERED: KEFZOL 1 GM/D5W 1 GM/50 ML IVPB ONE (14:49)
[2018-04-18] MEDS ORDERED: BENADRYL LIQUID PO PRN (18:00)
[2018-04-18] MEDS ORDERED: SODIUM CHLORIDE 0.9% INJ PRN (18:00)
[2018-04-18] MEDS ORDERED: LABETALOL IV PRN (18:00)
[2018-04-18] MEDS ORDERED: OFIRMEV 1000 MG/ISOTONIC SOLN 1,000 MG/100 ML BOTTLE IV PRN (18:00)
[2018-04-18] MEDS ORDERED: PHENERGAN IV PRN (18:00)
[2018-04-18] MEDS ORDERED: DITROPAN PO PRN (18:00)
[2018-04-18] MEDS ORDERED: SALINE LOCK IV FLUID XX ONE (18:01)
[2018-04-18] MEDS ORDERED: FLU VACCINE IM ONE (18:51)
[2018-04-18] MEDS: PEPCID PO SCH (21:04)
[2018-04-18] MEDS: OXY IR PO PRN (21:04)
[2018-04-18] MEDS: LIPITOR PO SCH (21:04)
[2018-04-18] MEDS: PERIDEX MT SCH (21:04)
[2018-04-18] MEDS: COLACE PO SCH (21:04)
--- NOTE | 2018-04-18 21:55 | OPERATIVE NOTE ---
PROCEDURE DATE: 04/18/2018 SURGEON: Oleksandr Bridges MD. PREOPERATIVE DIAGNOSIS: Prostate cancer with a [place] number of 4. POSTOPERATIVE DIAGNOSIS: Prostate cancer with a [place] number of 4. PROCEDURE PERFORMED: Laparoscopic robot-assisted radical retropubic prostatectomy and bilateral pelvic lymph node dissection. Cystoscopic exam. ANESTHESIA: General endotracheal. FINDINGS: The prostate was somewhat adhered to the rectum. The pelvic lymph nodes appeared normal. Because of difficulty placing the Reed catheter after the anastomosis, a cystoscopic exam was performed that revealed a open urethra with a good anastomosis. INDICATION FOR PROCEDURE: This 68-year-old male had a history of elevated PSA. Transrectal prostate ultrasound and biopsies revealed adenocarcinoma, Patrizia grade 3 + 4 in 1 core, 3+ 3 in the other cores. The various treatments for prostate cancer was discussed with the patient and he decided on radical surgery. DESCRIPTION OF PROCEDURE: After informed consent was obtained from the patient, and him receiving IV antibiotics, he was taken the main OR, placed in the supine position. General endotracheal anesthesia was achieved. He was then prepped and draped in the usual sterile fashion for abdominal, penile and perineal surgery. An 18-Malagasy Reed catheter was passed the patient's urethra, prostate, and bladder without difficulty. Pneumoperitoneum was achieved by making a small incision above the umbilicus and the Veress needle was placed. The water drop test indicated the needle in good position. Pneumoperitoneum was achieved to 15 cm of water with CO2. After pneumoperitoneum was achieved, the Veress needle was removed and the Visiport was used to place a 12 mm camera port trocar. The camera was placed and the robot trocars were placed in their standard position with the #4 arm just above the right anterior superior iliac spine, the #1 arm 1 handbreadth lateral to the camera port in the right lower quadrant area and the #2 arm was placed 1-1/2 handbreadth lateral to the camera port on the left. The assistant professor of biochemistry port was placed in the left epigastric area. After the trocars were placed, the table was dropped all the way down and the patient placed in steep Trendelenburg. The robot was docked. The patient was noted to have significant physiologic adhesions, both on the left and the right side had to be taken down. After these were taken down the #4 arm was used to retract the colon cephalad. An incision was made approximately 2 cm above the reflection of the peritoneum off of the rectum and going on to the anterior abdominal wall. This was taken back to the seminal vesicles and ampulla vas deferens. These were bluntly and sharply dissected free. The vas deferens was completely transected. The artery to the vas was cauterized. The seminal vesicles were bluntly and sharply dissected free. Denonvilliers fascia was entered at the base of the prostate where the seminal vesicles and ampulla vas entered the prostate. Both sides were accomplished similarly. Attention was then turned to the anterior abdominal wall where the patient again was morbidly obese and there was adipose tissue in all parts. The medial umbilical ligament was somewhat recognize by a small lump in the anterior abdominal wall fat. This was grasped and pulled medially. An incision was made and dissected down eventually seeing the pubic bone. This was taken up on the anterior abdominal wall. The left side was accomplished similarly. The medial and median umbilical ligaments were taken down sharply and the bladder was dropped off the anterior abdominal wall. There were significant size fat vessels. These had to be cauterized and 2 were clipped because of their size. The bladder was finally visualized as well as the endopelvic fascia. This was completely cleaned off. A #2-0 V-Loc suture was used to ligate the dorsal vein complex. The needle was placed under the dorsal vein complex and then through the eye of the tail of the suture. This was pulled tight. It was then passed back under the dorsal vein complex, through the periosteum of the pubis, back under the dorsal vein complex and then back through the periosteum of the pubis. The bilateral lymph node dissection was performed by tediously dissecting through at least 2 inches of adipose tissue to visualize the external iliac vein. This was then dissected down over the pubic bone to the obturator nerve. The distal part of this node and fat package was clipped and incised and dissected back to the bifurcation of the external and internal iliac veins. Both sides were accomplished similarly. The area was packed with Surgicel Snow. Attention was then turned to the anterior bladder wall. The bladder muscle was grasped as it inserted on to the prostate and cauterized and the cautery was used to incise the bladder off of the base of the prostate. The bladder was entered. The Reed catheter was brought out through the cystotomy to act as a traction device and the posterior bladder was incised and the bladder was completely dissected off the base of the prostate. The prostate pedicles were taken down with clips. The prostate was bluntly and sharply dissected off of the rectum all way to the apex. At the apex of the prostate, the dorsal vein complex was cauterized as it fanned out over the apex and the urethra was visualized and incised several millimeters distal to the apex of the prostate. The posterior rhabdosphincter was incised and the prostate placed in an EndoCatch retrieval bag. The lymph nodes were brought out. The right side was placed with the prostate and the left side was sent in its own bag. The vesicovisceral fascia was anastomosed to the posterior rhabdosphincter with a running suture of 3-0 V-Loc. The needles on each end of the suture was moved to the side to use as the urethral suspension. The bladder was anastomosed to the urethra with a running 3-0 V-Loc suture. Because the Reed catheter could not be ascertained exactly in the bladder, a flexible cystoscope was passed through the patient's urethra and up into the bladder verifying the anastomosis was good and the flexible scope was left in place and a 0.038 guidewire was passed through the flexible cystoscope and into the bladder. The wire was coiled in the bladder and the flexible cystoscope was removed and a 18-Malagasy Councill tip Reed was passed over the guidewire and up into the bladder. 10 mL of sterile water were placed in the Reed balloon and the wire was removed. The Reed drained light caleb in color urine. The Reed was then placed to gravity drain. The EndoCatch retrieval bag string was brought out through the camera port. The robot was undocked. The patient's table was placed in the supine position. The camera port incision was extended for a total length of 4 cm and the prostate was removed. The abdominal rectus fascia was reapproximated with interrupted sutures of #1 Maxon. The subcutaneous tissue was closed over the #1 Maxon sutures and the skin was reapproximated with clips. The other robot trocar incisions were reapproximated with clips. The wounds were dressed with island dressings. He tolerated the procedure well. The estimated blood loss was 1100 mL. He was taken to the recovery room, extubated in good condition. cc: Oleksandr Bridges MD
[2018-04-18] MEDS ORDERED: KEFZOL 1 GM/D5W 1 GM/50 ML IVPB IV ONE (22:00)
[2018-04-19] MEDS: OXY IR PO PRN ×4 (02:38→21:54)
[2018-04-19 05:40] LABS: HEMATOCRIT 31.5 % (42.0-52.0); HEMOGLOBIN 10.1 g/dL (14.0-18.0); MCH 31.6 PG (27-31); MCHC 32.1 g/dL (33-37); MCV 98.4 FL (81-99); MPV 9.6 FL (7.4-10.4); RBC 3.2 XMIL (4.7-6.1); RDW 14.2 % (11.5-14.5); WBC 9.42 X1000 (4.8-10.8)
[2018-04-19 06:00] LABS: CALCIUM 7.7 mg/dL (8.8-10.2); CREATININE 1.9 mg/dL (0.7-1.2); POTASSIUM 4.9 mmol/L (3.5-5.1)
[2018-04-19] MEDS ORDERED: NON-FORMULARY MED (Lisinopril/Hydrochlorothiazide [Lisinopril-Hctz 20-25 Mg Tab] 1 EACH) PO SCH (09:00)
[2018-04-19] MEDS: HYDROCHLOROTHIAZIDE PO SCH (11:24)
[2018-04-19] MEDS: COLACE PO SCH ×2 (11:24→21:53)
[2018-04-19] MEDS: PERIDEX MT SCH ×2 (11:24→21:53)
[2018-04-19] MEDS: PEPCID PO SCH ×2 (11:25→21:53)
[2018-04-19] MEDS: PRINIVIL PO SCH (11:25)
[2018-04-19] MEDS: LR 1,000 ML IV SCH ×2 (15:16→22:07)
[2018-04-19] MEDS: LIPITOR PO SCH (21:53)
[2018-04-20] MEDS: LR 1,000 ML IV SCH (07:35)
[2018-04-20] MEDS: COLACE PO SCH ×2 (09:02→22:03)
[2018-04-20] MEDS: PEPCID PO SCH ×2 (09:02→22:03)
[2018-04-20] MEDS: PRINIVIL PO SCH (09:03)
[2018-04-20] MEDS: HYDROCHLOROTHIAZIDE PO SCH (09:03)
[2018-04-20] MEDS: PERIDEX MT SCH ×2 (09:03→22:03)
[2018-04-20] MEDS: NS 1,000 ML IV SCH ×2 (10:50→22:04)
[2018-04-20 11:23] LABS: HEMATOCRIT 27.1 % (42.0-52.0); HEMOGLOBIN 8.5 g/dL (14.0-18.0); MCHC 31.4 g/dL (33-37); MCV 98.9 FL (81-99); MPV 9.7 FL (7.4-10.4); RBC 2.74 XMIL (4.7-6.1); RDW 14.4 % (11.5-14.5); WBC 9.98 X1000 (4.8-10.8)
[2018-04-20] MEDS: LIPITOR PO SCH (22:03)
[2018-04-21] MEDS: NS 1,000 ML IV SCH ×2 (08:44→19:05)
[2018-04-21] MEDS: OXY IR PO PRN (10:41)
[2018-04-21] MEDS: PERIDEX MT SCH (10:42)
[2018-04-21] MEDS: PRINIVIL PO SCH ×2 (10:42→10:43)
[2018-04-21] MEDS: PEPCID PO SCH (10:42)
[2018-04-21] MEDS: HYDROCHLOROTHIAZIDE PO SCH (10:42)
[2018-04-21] MEDS: COLACE PO SCH (10:42)
[2018-04-21 11:32] VITALS: BP 115/56
--- NOTE | 2018-04-22 10:16 | DISCHARGE SUMMARY ---
ADMISSION DATE: 04/21/2018 DISCHARGE DATE: 04/21/2018 DISCHARGE DIAGNOSES: 1. Adenocarcinoma of the prostate. 2. Hypertension. 3. Obesity. 4. Elevated cholesterol. 5. Acute blood loss anemia. DISCHARGE MEDICATIONS: Lipitor 40 mg a day. Hydrochlorothiazide 25 mg a day. Lisinopril 20 mg a day. [place] 10 one by mouth every 4 hours as needed for pain, dispense 12. Ditropan 5 mg 1 or 2 three times a day as needed for spasms, dispense 30. Ferrous sulfate 325 one by mouth every day, dispense 90. HOSPITAL COURSE: This 68-year-old male was noted to have elevated PSA. Prostate biopsies revealed adenocarcinoma, [place] grade 3 + 4 and 3 + 3, in his prostate. He underwent robot- assisted laparoscopic radical retropubic prostatectomy and bilateral pelvic lymph node dissection without difficulty. He did have significant blood loss (1100 mL). At discharge, his vital signs are stable. He is afebrile. He is ambulating. He is passing gas. His Reed catheter is in place, draining clear urine. He does have some leakage around the catheter which is not unusual. He will go home with a leg bag and switch between the leg bag for daytime use and bed bag for nighttime use. He will return to [facility] in 1 week. His discharge diet is regular. cc: Oleksandr Bridges MD
== END 2018-04-21 18:00 | disposition home or self-care (01) | DRG 707 ==
LOC: 4N 05:05 → OR 05:05
PROVIDERS: ADMIT Urology; ATTEND Urology
CPT/HCPCS: 80048; 81001; 85014; 85018; 85027; 86850; 86900; 86901; 86920; 88307; 88309; 90686; 93005; 93010; 94761; 94799; A9270; J0131; J0330; J0690; J1100; J1170; J2405; J3010; J7030; J7120; S2900